=== PATIENT | female | born 1950 | race Caucasian/White ===

== ENCOUNTER 2021-01-22 09:55 | Day surgery (SDC) | payer BC, OTHER ==
[2021-01-19 10:43] LABS: MICROSCOPIC NOT IND
[2021-01-19 10:55] LABS: BASOPHILS % (AUTO) 1 % (0-1); EOSINOPHILS % (AUTO) 2 % (1-7); LYMPHOCYTES % (AUTO) 31 % (22-44); MEAN CORPUSCULAR HEMOGLOBIN 31.5 pg (27.0-34.8); MEAN CORPUSCULAR HGB CONC 34.5 g/dL (32.4-35.8); MEAN PLATELET VOLUME 8.6 fL (7.4-10.4); MONOCYTES % (AUTO) 14 % (2-9); NEUTROPHILS % (AUTO) 53 % (42-75); PLATELET COUNT 230 x10^3/uL (130-400); RED BLOOD COUNT 4.78 x10^6/uL (3.82-5.3); RED CELL DISTRIBUTION WIDTH 12.4 % (9.6-15.2)
[2021-01-19 11:03] LABS: MD NO
[~2021-01-22] VITALS: Ht 167.6 cm; Wt 67.5 kg
[~2021-01-22 09:55] MED LIST: BIOTIN PO; CHOL10003 PO; COLLAGEN PO; ESTR1PAT25 TP; GLUC-165 PO; LUTE40CA PO; MULT-658 PO; PROG100C16 PO
[2021-01-22 10:41] VITALS: BP 108/64
[2021-01-22] MEDS ORDERED: LACTATED RINGERS 1,000 ML IV SCH (11:00)
[2021-01-22] MEDS ORDERED: ACETAMINOPHEN 500 MG TABLET PO ONE (11:00)
[2021-01-22] MEDS ORDERED: GABAPENTIN 300 MG CAPSULE PO ONE (11:00)
[2021-01-22] MEDS ORDERED: CHLORHEXIDINE 15 ML UDC PO ONE (11:00)
[2021-01-22] MEDS ORDERED: MIDAZOLAM 1 MG/ML, 2ML ONE (11:24)
[2021-01-22] MEDS ORDERED: FENTANYL PF 250 MCG/5ML ONE (11:24)
[2021-01-22] MEDS ORDERED: hydrALAzine 20 MG/ML, 1ML IV PRN (11:30)
[2021-01-22] MEDS ORDERED: HALOPERIDOL 5 MG/ML IV PRN (11:30)
[2021-01-22] MEDS ORDERED: PROMETHAZINE 25 MG/ML, 1ML IVPush PRN (11:30)
[2021-01-22] MEDS ORDERED: HYDROmorphone 1 MG/ML, 1ML INJ IVPush PRN (11:30)
[2021-01-22] MEDS ORDERED: OXYcodone 5 MG/5 ML ORAL.SOL UDC PO PRN (11:30)
[2021-01-22] MEDS ORDERED: LABETALOL 5MG/ML, 20ML IV PRN (11:30)
[2021-01-22] MEDS ORDERED: DIPHENHYDRAMINE 50 MG/ML, 1ML IVPush PRN (11:30)
[2021-01-22] MEDS ORDERED: FENTANYL PF 100 MCG/2ML IV PRN (11:30)
[2021-01-22] MEDS ORDERED: MEPERIDINE/PF 25MG/0.5ML IVPush PRN (11:30)
[2021-01-22] MEDS ORDERED: BUPIVACAINE/PF 0.25% ONE ×2 (11:31→11:41)
[2021-01-22] MEDS ORDERED: EPINEPHRINE 1 MG/ML, 1ML ONE (11:31)
[2021-01-22] MEDS ORDERED: SILVER NITRATE STICK TP ONE (11:31)
[2021-01-22] MEDS ORDERED: CEFAZOLIN 1,000 MG ONE (12:28)
[2021-01-22] MEDS ORDERED: PROPOFOL 10 MG/ML, 20ML ONE (12:28)
[2021-01-22] MEDS ORDERED: DEXAMETHASONE 4 MG/ML, 1ML ONE (12:28)
[2021-01-22] MEDS ORDERED: ONDANSETRON 2MG/ML, 2ML ONE (12:28)
[2021-01-22] MEDS ORDERED: KETOROLAC 30 MG/1 ML ONE (12:33)
== END 2021-01-22 16:20 | disposition home or self-care (01) ==
LOC: OUT 09:55 → EDSTATUS 11:30 → OUT 16:20
PROVIDERS: ATTEND Obstetrics & Gynecology
DX: N84.0 Polyp of corpus uteri (principal); Z20.822 Contact with and (suspected) exposure to COVID-19; Z79.818 Long term (current) use of other agents affecting estrogen receptors and estrogen levels; Z79.899 Other long term (current) drug therapy; Z88.2 Allergy status to sulfonamides; Z98.890 Other specified postprocedural states; Z80.1 Family history of malignant neoplasm of trachea, bronchus and lung
CPT/HCPCS: 36415; 58558; 81003; 85025; 88305; 93005; J0171; J0690; J1100; J1885; J2250; J2405; J2704; J3010; J7120; U0003